=== PATIENT | female | born 1970 | race Caucasian/White ===

== ENCOUNTER 2016-07-04 18:57 | Emergency (ER) | payer MEDICAID, OTHER ==
[~2016-07-04] VITALS: Ht 162.6 cm; Wt 92.5 kg
[~2016-07-04 18:57] MED LIST: ACET325T33 PO; FAMO-18 PO; HYDR-3498 PO; HYDR-906 PO; NITR-58 PO
[2016-07-04 19:06] VITALS: Ht 162.6 cm; Wt 92.5 kg
[2016-07-04] MEDS ORDERED: SOD CHLORIDE 0.9% 1,000 ML IV STA (21:18)
[2016-07-04] MEDS ORDERED: FAMOTIDINE 20 MG INJ IV STA (21:18)
[2016-07-04] MEDS ORDERED: ONDANSETRON 4 MG INJ IV STA (21:18)
[2016-07-04 22:24] LABS: ADD SCAN DIFF NO
[2016-07-04 22:25] LABS: BASOPHIL # 0.1 10^3/ul (0.0-0.1); BASOPHILS % 0.6 % (0.0-2.0); EOSINOPHILS # 0.2 10^3/ul (0.0-0.5); EOSINOPHILS % 2.4 % (0.0-7.0); HEMATOCRIT 37.8 % (37.0-47.0); HEMOGLOBIN 11.8 g/dl (12.0-16.0); LYMPHOCYTES # 2.3 10^3/ul (0.8-2.9); LYMPHOCYTES % 25.4 % (15.0-51.0); MEAN CORPUSCULAR HEMOGLOBIN 28.4 pg (29.0-33.0); MEAN CORPUSCULAR HGB CONC 31.2 g/dl (32.0-37.0); MEAN CORPUSCULAR VOLUME 90.9 fl (82.0-101.0); MEAN PLATELET VOLUME 10.2 fl (7.4-10.4); MONOCYTE # 0.7 10^3/ul (0.3-0.9); MONOCYTES % 7.8 % (0.0-11.0); NEUTROPHIL # 5.6 10^3/ul (1.6-7.5); NEUTROPHILS % 63.3 % (39.0-77.0); PLATELET COUNT 342 10^3/UL (140-415); RED BLOOD COUNT 4.16 10^6/ul (4.20-5.40); RED CELL DISTRIBUTION WIDTH 14.1 % (11.5-14.5); WHITE BLOOD COUNT 8.9 10^3/ul (4.8-10.8)
[2016-07-04 22:47] LABS: ALBUMIN 3.9 g/dl (3.3-4.9); ALBUMIN/GLOBULIN RATIO 1.18; BILIRUBIN,INDIRECT 0.5 mg/dl (0-1.1); BILIRUBIN,TOTAL 0.5 mg/dl (0.2-1.3); CALCIUM 8.8 mg/dl (8.4-10.2); CREATININE 0.61 mg/dl (0.44-1.00); POTASSIUM 4.4 mmol/L (3.5-5.1); TOTAL PROTEIN 7.2 g/dl (6.1-8.1)
--- NOTE | 2016-07-04 22:55 | RADRPT ---
PROCEDURE: US Abdomen. CLINICAL INDICATION: abdominal pain TECHNIQUE: Multiple real-time images were acquired of the patient's right upper quadrant abdomen a nd retroperitoneum utilizing a high resolution transducer. COMPARISON: 11/28/2015 FINDINGS: The liver demonstrates increased echogenicity. The liver is slightly enlarged in size and no focal solid lesions are seen. The liver measures 20.1 cm in length. The portal vein is patent with normal direction of flow. No intrahepatic biliary dilatation is seen. The patient is status post cholecystectomy. The common bile duct measures 6 mm in maximal dimension. The visualized portions of the pancreas are unremarkable. The tail of the pancreas is not seen. No free fluid is identified. The right kidney is normal in size, and demonstrate normal echogenicity and cortical thickness. The right kidney measures 12.6 cm in long dimension. There is no evidence of hydronephrosis. There are no kidney stones. RPTAT: AA IMPRESSION: Mild fatty infiltration of the liver with mild hepatomegaly. Status post cholecystectomy with a normal sized CBD. .Lazaro Cifuentes MD, MD Date Time Electronically viewed and signed by .Lazaro Cifuentes MD, on 07/04/2016 22:55 .S/
--- NOTE | 2016-07-04 22:58 | RADRPT ---
PROCEDURE: US Pelvis. CLINICAL INDICATION: pelvic pain TECHNIQUE: Multiple sonographic images of the pelvis were obtained utilizing a transabdominal and endovaginal technique. The images were reviewed on a PACS workstation. COMPARISON: 09/28/2015 FINDINGS: The uterus is normal in size with a normal appearance of the myometrium. The uterus measures 8.9 x 4.7 x 5.5 cm. The endometrial stripe is homogeneous in appearance and has the thickness of 7 mm. The re are Nabothian cysts in the cervix. The right ovary was not visualized. There is a small 1.2 cm cyst in the left ovary. There is normal Doppler flow in the left ovary. The left ovary measures 3.4 x 2.1 x 2.3 cm. No free fluid is present within the pelvis. RPTAT: AA IMPRESSION: Unremarkable pelvic ultrasound. Right ovary not visualized. .Lazaro Cifuentes MD, Date Time Electronically viewed and signed by .Lazaro Cifuentes MD, MD on 07/04/2016 22:57 .S/
[2016-07-04 23:42] LABS: URINE BLOOD (Dip) POC Negative (NEGATIVE)
[2016-07-05] MEDS ORDERED: OMEP20CA16 PO (00:10)
--- NOTE | 2016-07-05 00:22 | ERD ---
ER Documentation Chief Complaint Date/Time DATE: 07/05/16 TIME: 00:14 Chief Complaint MID TO RUQ AP W/ VOMITING TODAY. STATES GALLBLADDER IS OUT. HPI This is a 45-year-old female presents emergency department for epigastric to right upper quadrant abdominal pain with vomiting starting today. Patient states she developed epigastric abdominal pain that radiates to right upper quadrant starting today. Patient had one episode of postprandial vomiting today. Nonbilious nonbloody emesis. Patient states she had cholecystectomy November 2015 due to gallstones. Patient describes pain as burning and cramping. No diarrhea Patient or constipation. No fevers or chills. Patient also has intermittent pelvic pain and was told she has "pelvic tumors." patient requesting pelvic ultrasound to determine if she has pelvic tumors. Patient states she was recently in [place] and was placed on amoxicillin for infection. Patient denies dysuria or hematuria. Last menstrual period 06/16/2016. No vaginal bleeding or pelvic pain. ROS All systems reviewed and are negative except as per history of present illness. Medications Home Meds Active Scripts Omeprazole* (Omeprazole*) 20 Mg Capsule., 20 MG PO DAILY, #10 Prov:JAY MARTINEZ NP 07/05/16 Famotidine* (Pepcid*) 20 Mg Tablet, 20 MG PO BID, #30 TAB Prov:HOLLIE MONTEZ PA-C 11/28/15 Hydrocodone/Acetaminophen ([place] 5-325 Tablet) 1 Each Tablet, 1 TAB PO Q6H Y for PAIN, #7 TAB Prov:HOLLIE MONTEZ PA-C 11/28/15 Acetaminophen* (Tylenol*) 325 Mg Tablet, 2 TAB PO Q6 Y for PAIN AND OR ELEVATED TEMP, #20 TAB Prov:ERLINDA MYLES PA-C 09/28/15 Famotidine* (Pepcid*) 20 Mg Tablet, 20 MG PO BID for 4 Days, TAB Prov:ERLINDA MYLES PA-C 09/28/15 Hydrocodone Bit-Acetaminophen* ([place]*) 5-325 Mg Tab, 1 TAB PO Q6 Y for PAIN, # 7 TAB Prov:ERLINDA MYLES PA-C 09/28/15 Nitrofurantoin Monohyd Macrocr* (Macrobid*) 100 Mg Capsr, 100 MG PO BID for 14 Days, CAP Prov:ERLINDA MYLES PA-C 09/28/15 Allergies Allergies: Coded Allergies: No Known Allergy (Unverified , 09/28/15) PMhx/Soc History of Surgery: No Anesthesia Reaction: No Hx Neurological Disorder: No Hx Respiratory Disorders: No Hx Cardiac Disorders: No Hx Psychiatric Problems: No Hx Alcohol Use: No Hx Substance Use: No Hx Tobacco Use: No Smoking Status: Never smoker Physical Exam Vitals Vital Signs Date Time Temp Pulse Resp B/P Pulse Ox O2 Delivery O2 Flow Rate FiO2 07/05/16 00:55 98.0 65 20 108/57 96 Room Air 07/04/16 19:06 98.0 77 20 124/56 97 Physical Exam const: No acute distress, alert Head: Atraumatic Eyes: Normal Conjunctiva ENT: Normal External Ears, Nose and Mouth. Neck: Full range of motion..~ No meningismus. Resp: Clear to auscultation bilaterally Cardio: Regular rate and rhythm, no murmurs Abd: Soft, non tender, non distended. Normal bowel sounds Skin: No petechiae or rashes Back: No midline or flank tenderness Ext: No cyanosis, or edema Neur: Awake and alert Psych: Normal Mood and Affect Result Diagram: 07/04/16220407/04/162204 Results 24 hrs Laboratory Tests Test 07/04/16 22:05 07/04/16 23:44 White Blood Count 8.910^3/ul Red Blood Count 4.1610^6/ul Hemoglobin 11.8g/dl Hematocrit 37.8% Mean Corpuscular Volume 90.9fl Mean Corpuscular Hemoglobin 28.4pg Mean Corpuscular Hemoglobin Concent 31.2g/dl Red Cell Distribution Width 14.1% Platelet Count 55903^3/UL Mean Platelet Volume 10.2fl Neutrophils % 63.3% Lymphocytes % 25.4% Monocytes % 7.8% Eosinophils % 2.4% Basophils % 0.6% Nucleated Red Blood Cells % 0.0/100WBC Neutrophils # 5.610^3/ul Lymphocytes # 2.310^3/ul Monocytes # 0.710^3/ul Eosinophils # 0.210^3/ul Basophils # 0.110^3/ul Nucleated Red Blood Cells # 0.010^3/ul Sodium Level 136mmol/L Potassium Level 4.4mmol/L Chloride Level 105mmol/L Carbon Dioxide Level 27mmol/L Anion Gap 8 Blood Urea Nitrogen 14mg/dl Creatinine 0.61mg/dl Glucose Level 95mg/dl Calcium Level 8.8mg/dl Total Bilirubin 0.5mg/dl Direct Bilirubin 0.00mg/dl Indirect Bilirubin 0.5mg/dl Aspartate Amino Transf (AST/SGOT) 26IU/L Alanine Aminotransferase (ALT/SGPT) 50IU/L Alkaline Phosphatase 104IU/L Total Protein 7.2g/dl Albumin 3.9g/dl Globulin 3.30g/dl Albumin/Globulin Ratio 1.18 Lipase 49U/L Bedside Urine pH (LAB) 6.0 Bedside Urine Protein (LAB) Negative Bedside Urine Glucose (UA) Negative Bedside Urine Ketones (LAB) Negative Bedside Urine Blood Negative Bedside Urine Nitrite (LAB) Negative Bedside Urine Leukocyte Esterase (L Negative Current Medications Medications (Trade) Dose Ordered Sig/Darin Route PRN Reason Start Time Stop Time Status Last Admin Dose Admin Sodium Chloride (NS) 1,000 ml @ 1,000 mls/hr Q1H STAT IV 07/04/16 21:18 07/04/16 22:17 DC 07/04/16 22:13 Ondansetron HCl (Zofran Inj) 4 mg ONCE STAT IV 07/04/16 21:18 07/04/16 21:21 DC 07/04/16 22:13 Famotidine (Pepcid Iv) 20 mg ONCE STAT IV 07/04/16 21:18 07/04/16 21:21 DC 07/04/16 22:13 Procedures/MDM ED COURSE: The patient was stable throughout ED course. I kept the patient and/or family informed of laboratory and diagnostic imaging results throughout the ED course. Laboratory CBC no significant anemia or infection CMP no significant electrolyte imbalance Lipase 49 Urine dip negative Urine negative Imaging Gallbladder ultrasound Patient: EMELIA KRAMER : 1970 Age: 45 Sex: F [id number]: 07/04/162117 Ordering MD: JAY MARTINEZ NP Location: [facility] Room/Bed: PROCEDURE: US Abdomen. CLINICAL INDICATION: abdominal pain TECHNIQUE: Multiple real-time images were acquired of the patient's right upper quadrant abdomen and retroperitoneum utilizing a high resolution transducer. COMPARISON: 11/28/2015 FINDINGS: The liver demonstrates increased echogenicity. The liver is slightly enlarged in size and no focal solid lesions are seen. The liver measures 20.1 cm in length. The portal vein is patent with normal direction of flow. No intrahepatic biliary dilatation is seen. The patient is status post cholecystectomy. The common bile duct measures 6 mm in maximal dimension. The visualized portions of the pancreas are unremarkable. The tail of the pancreas is not seen. No free fluid is identified. The right kidney is normal in size, and demonstrate normal echogenicity and cortical thickness. The right kidney measures 12.6 cm in long dimension. There is no evidence of hydronephrosis. There are no kidney stones. RPTAT: AA IMPRESSION: Mild fatty infiltration of the liver with mild hepatomegaly. Status post cholecystectomy with a normal sized CBD. Pelvic ultrasound Patient: EMELIA KRAMER : 1970 Age: 45 Sex: F MR #: [id number] DOS: 07/04/162117 Ordering MD: JAY MARTINEZ NP Location: [facility] Room/Bed: PROCEDURE: US Pelvis. CLINICAL INDICATION: pelvic pain TECHNIQUE: Multiple sonographic images of the pelvis were obtained utilizing a transabdominal and endovaginal technique. The images were reviewed on a PACS workstation. COMPARISON: 09/28/2015 FINDINGS: The uterus is normal in size with a normal appearance of the myometrium. The uterus measures 8.9 x 4.7 x 5.5 cm. The endometrial stripe is homogeneous in appearance and has the thickness of 7 mm. There are Nabothian cysts in the cervix. The right ovary was not visualized. There is a small 1.2 cm cyst in the left ovary. There is normal Doppler flow in the left ovary. The left ovary measures 3.4 x 2.1 x 2.3 cm. No free fluid is present within the pelvis. RPTAT: AA IMPRESSION: Unremarkable pelvic ultrasound. Right ovary not visualized. EKG: as interpreted by Dr. Larson Rate/Rhythm: Normal Sinus Rhythm with HR 63bpm QRS, ST, T-waves: No changes consistent w/ acute ischemia Impression: No evidence of ischemia or arrhythmia MDM: This is a 45-year-old female presenting to the emergency department for epigastric and right upper quadrant abdominal pain with postprandial vomiting today. Nonbloody nonbilious emesis. No fevers or chills. Patient is afebrile upon arrival to ED. labs obtained per chief of staff doctor. IV access obtained and patient given 1 L fluid bolus of normal saline. Labs are unremarkable. No significant anemia or infection. No significant electrolyte imbalance. Patient given Pepcid and Zofran while in the ED. Upon reassessment, patient states abdominal pain has improved. Ultrasound gallbladder reviewed by radiologist as mild fatty infiltration of the liver with mild hepatomegaly. Status post cholecystectomy with a normal sized CBD. Pelvic ultrasound reviewed by radiologist as unremarkable. Patient given copies of her test results. EKG shows NSR with HR 63bpm as interpreted by Dr. Larson. Low suspicion for acute IN, ACS, choledocholithiasis, pancreatitis, diverticulitis, UTI or pyelonephritis. Differential diagnosis includes but not limited to GERD, gastritis, gastroparesis, peptic ulcer disease and BATISTA. Patient is appropriate for outpatient management and we given prescription for omeprazole. Instructed patient to follow-up with primary care provider in the next 2-3 days for reassessment. Return to ED for any high fever, chest pain, difficulty breathing, shortness breath, wheezing, vomiting, diarrhea, abdominal pain or any new or worsening symptoms. Patient verbalizes understanding. All questions answered at discharge. Departure Diagnosis: Primary Impression: Abdominal pain Abdominal location: epigastric Qualified Code: R10.13 - Epigastric pain Condition: Stable Patient Instructions: Non-Alcoholic Fatty Liver Disease (NAFLD), Gerd (Adult) Referrals: [facility] Usted se oconnor hecho un examen mdico de control que le indica que no est en romel condicin que requiera tratamiento urgente en el Departamento de Emergencia. Un estudio ms profundo y el tratamiento de garcia condicin pueden esperar sin ningn riesgo hasta que usted sea atendida/o en el consultorio de garcia mdico o romel cl fide. Es responsabilidad suya arreglar romel ketan para el seguimiento del danette. MANEJO DE CONDICIONES NO URGENTES EN EL FUTURO 1) Si usted tiene un mdico de atencin primaria: Usted debera llamar a garcia mdico de atencin primaria antes de venir al departamento de emergencia. Despus de las horas de consultorio, garcia doctor o garcia asociado/a est disponible por telfono. El mdico o enfermero de galilea en el servicio telefnico puede asesorarle por estella medio para atender el problema, o danette contrario se puede programar romel ketan. 2) Si usted no tiene un mdico de atencin primaria: Llame al mdico o clnica de referencia que aparece [place] las horas de consultorio para hacer romel ketan para que le vean. CLINICAS: [facility] [phone] [place] [facility] [phone] [facility] [phone] [facility] [phone] [facility] [phone] [address] [facility]. [phone] [address] [facility]. [facility] () Usted se oconnor hecho un examen mdico de control que le indica que no est en romel condicin que requiera tratamiento urgente en el Departamento de Emergencia. Un estudio ms profundo y el tratamiento de garcia condicin pueden esperar sin ningn riesgo hasta que usted sea atendida/o en el consultorio de garcia mdico o romel cl fide. Es responsabilidad suya arreglar romel ketan para el seguimiento del danette. MANEJO DE CONDICIONES NO URGENTES EN EL FUTURO 1) Si usted tiene un mdico de atencin primaria: Usted debera llamar a garcia mdico de atencin primaria antes de venir al departamento de emergencia. Despus de las horas de consultorio, garcia doctor o garcia asociado/a est disponible por telfono. El mdico o enfermero de galilea en el servicio telefnico puede asesorarle por estella medio para atender el problema, o danette contrario se puede programar romel ketan. 2) Si usted no tiene un mdico de atencin primaria: Llame al mdico o condado institucions de referencia que aparece abajo [place] las horas de consultorio para hacer romel ketan para que le vean. SI USTED NO PUEDE PAGAR PARA CLARI UN MEDICO puede ir a: [facility] [address] [place] [address] [facility] [address] [place] [address] [facility] [address] [place] [address] [facility] [address] [place], [place] [id number] Additional Instructions: Llame al doctor MAANA y yaneli romel KETAN PARA DENTRO DE 2-3 GUTIERREZ.Dgale a la secretaria que nosotros le instruimos hacer esta ketan.Avise o llame si garcia condicin se empeora antes de la ketan. Regresa aqui si peor o no mejor. Return to ED for any high fever, chest pain, difficulty breathing, shortness breath, wheezing, vomiting, diarrhea, abdominal pain or any new or worsening symptoms. JAY MARTINEZ NP July 05, 2016 00:22
[2016-07-05 00:55] VITALS: BP 108/57; PULSE 65; RESP 20; TEMP 98
== END 2016-07-05 00:56 | disposition home or self-care (01) ==
LOC: FTE 18:57
DX: R10.13 Epigastric pain (principal); R10.2 Pelvic and perineal pain
CPT/HCPCS: 76705; 76830; 76856; 80053; 81003; 83690; 85025; J2405; J7030; Z7610; 36415; 93005; 96374; 96375

== ENCOUNTER 2016-08-19 16:01 | Emergency (ER) | payer OTHER ==
[~2016-08-19] VITALS: Ht 162.6 cm; Wt 93.0 kg
[~2016-08-19 16:01] MED LIST changes: +OMEP20CA16 PO
[2016-08-19 16:08] VITALS: Ht 162.6 cm; Wt 93.0 kg
[2016-08-19 17:08] LABS: ADD SCAN DIFF NO
[2016-08-19 17:10] LABS: BASOPHIL # 0.1 10^3/ul (0.0-0.1); BASOPHILS % 0.4 % (0.0-2.0); EOSINOPHILS # 0.2 10^3/ul (0.0-0.5); EOSINOPHILS % 1.5 % (0.0-7.0); HEMATOCRIT 36.3 % (37.0-47.0); HEMOGLOBIN 11.2 g/dl (12.0-16.0); LYMPHOCYTES # 2.6 10^3/ul (0.8-2.9); LYMPHOCYTES % 21.7 % (15.0-51.0); MEAN CORPUSCULAR HEMOGLOBIN 27.3 pg (29.0-33.0); MEAN CORPUSCULAR HGB CONC 30.9 g/dl (32.0-37.0); MEAN CORPUSCULAR VOLUME 88.5 fl (82.0-101.0); MEAN PLATELET VOLUME 10.1 fl (7.4-10.4); MONOCYTES % 8.1 % (0.0-11.0); NEUTROPHIL # 8.1 10^3/ul (1.6-7.5); NEUTROPHILS % 67.8 % (39.0-77.0); PLATELET COUNT 363 10^3/UL (140-415); RED CELL DISTRIBUTION WIDTH 13.8 % (11.5-14.5); WHITE BLOOD COUNT 11.9 10^3/ul (4.8-10.8)
[2016-08-19 17:22] LABS: ADD UMIC NO; UR ASCORBIC ACID NEGATIVE (NEGATIVE); UR BILIRUBIN (Dip) NEGATIVE (NEGATIVE); UR BLOOD (Dip) NEGATIVE (NEGATIVE); UR CLARITY CLEAR (CLEAR); UR COLOR YELLOW (YELLOW); UR GLUCOSE (Dip) NEGATIVE (NEGATIVE); UR KETONES (Dip) NEGATIVE (NEGATIVE); UR LEUKOCYTE ESTERASE (Dip) NEGATIVE Leu/ul (NEGATIVE); UR NITRITE (Dip) NEGATIVE (NEGATIVE); UR SPECIFIC GRAVITY (Dip) 1.019 (1.003-1.030); UR TOTAL PROTEIN (Dip) NEGATIVE (NEGATIVE); UR UROBILINOGEN (Dip) NEGATIVE (NEGATIVE)
--- NOTE | 2016-08-19 17:32 | RADRPT ---
PROCEDURE: Ultrasound of the bilateral lower extremity venous system. CLINICAL INDICATION: Bilateral leg pain and swelling, deep venous thrombosis TECHNIQUE: Smith scale with and without compression, color doppler, spectral doppler of the venous system of the bilateral lower extremities was performed. Venous augmentation maneuvers were utilized . COMPARISON: No prior studies are available for comparison. FINDINGS: RIGHT: Common femoral vein: Patent. Femoral vein: Patent. Popliteal vein: Patent. Calf veins: Patent. No soft tissue abnormalities are identified. LEFT: Common femoral vein: Patent. Femoral vein: Patent. Popliteal vein: Patent. Calf veins: Patent. No soft tissue abnormalities are identified. IMPRESSION: No evidence of a deep vein thrombosis within the bilateral lower extremities. RPTAT: AADD .Collins Gaxiola MD, MD Date Time Electronically viewed and signed by .Collins Gaxiola MD, on 08/19/2016 17:32 .B/
[2016-08-19 17:36] LABS: ALBUMIN 4.7 g/dl (3.3-4.9); ALBUMIN/GLOBULIN RATIO 1.51; BILIRUBIN,INDIRECT 0.3 mg/dl (0-1.1); BILIRUBIN,TOTAL 0.3 mg/dl (0.2-1.3); CALCIUM 9.2 mg/dl (8.4-10.2); CREATININE 0.61 mg/dl (0.44-1.00); POTASSIUM 4.2 mmol/L (3.5-5.1); TOTAL PROTEIN 7.8 g/dl (6.1-8.1)
[2016-08-19] MEDS ORDERED: BEN25 PO (17:49)
[2016-08-19] MEDS ORDERED: CLIN-73 PO (17:49)
--- NOTE | 2016-08-19 19:15 | ERD ---
ER Documentation Chief Complaint Date/Time DATE: 08/19/16 TIME: 19:05 Chief Complaint Complains of allergic reaction HPI This is a 45-year-old female presents to the ER stating she had an allergic reaction. Yesterday she took amoxicillin for a dental infection, and she noticed that today her bilateral hands felt tingly and she has bilateral leg swelling and tingling. Patient denies any rashes, facial swelling, itchiness of the body, redness of the body. Patient denies any difficulty in breathing, and denies any sensation of her throat closing. Patient has been under a lot of stress lately as four family members have . Patient has taken amoxicillin in the past without any problems. Patient denies any chest pain or shortness of breath. Patient denies any recent travel. Patient denies any headache, trauma, weakness of her upper or lower extremity. She denies any fevers or chills. ROS 12 point review of systems was done, all negative except per HPI. Medications Home Meds Active Scripts Clindamycin Hcl* (Clindamycin Hcl*) 300 Mg Capsule, 300 MG PO TID for 10 Days, CAP Prov:DARRELL MCCALL 08/19/16 Diphenhydramine Hcl* (Benadryl*) 25 Mg Cap, 25 MG PO Q6, #30 CAP Prov:DARRELL MCCALL 08/19/16 Omeprazole* (Omeprazole*) 20 Mg Capsule.dr, 20 MG PO DAILY, #10 Prov:JAY MARTINEZ NP 07/05/16 Famotidine* (Pepcid*) 20 Mg Tablet, 20 MG PO BID, #30 TAB Prov:HOLLIE MONTEZ PA-C 11/28/15 Hydrocodone/Acetaminophen ([place] 5-325 Tablet) 1 Each Tablet, 1 TAB PO Q6H Y for PAIN, #7 TAB Prov:HOLLIE MONTEZ PA-C 11/28/15 Acetaminophen* (Tylenol*) 325 Mg Tablet, 2 TAB PO Q6 Y for PAIN AND OR ELEVATED TEMP, #20 TAB Prov:ERLINDA MYLES PA-C 09/28/15 Famotidine* (Pepcid*) 20 Mg Tablet, 20 MG PO BID for 4 Days, TAB Prov:ERLINDA MYLES PA-C 09/28/15 Hydrocodone Bit-Acetaminophen* ([place]*) 5-325 Mg Tab, 1 TAB PO Q6 Y for PAIN, # 7 TAB Prov:ERLINDA MYLES PA-C 09/28/15 Nitrofurantoin Monohyd Macrocr* (Macrobid*) 100 Mg Capsr, 100 MG PO BID for 14 Days, CAP Prov:ERLINDA MYLES PA-C 09/28/15 Allergies Allergies: Coded Allergies: No Known Allergy (Unverified , 09/28/15) PMhx/Soc History of Surgery: Yes (cholecystectomy 11/2015) Anesthesia Reaction: No Hx Neurological Disorder: No Hx Respiratory Disorders: No Hx Cardiac Disorders: No Hx Psychiatric Problems: No Hx Miscellaneous Medical Probl: Yes (Fibroids and gallstone) Hx Alcohol Use: No Hx Substance Use: No Hx Tobacco Use: No Smoking Status: Never smoker Physical Exam Vitals Vital Signs Date Time Temp Pulse Resp B/P Pulse Ox O2 Delivery O2 Flow Rate FiO2 08/19/16 16:08 98.3 83 20 155/65 99 Physical Exam GENERAL: The patient is well developed and appropriate for usual state of health , in no apparent distress. HEENT: Atraumatic. Conjunctivae are pink. Pupils equal, round, and reactive to light. Extraocular muscles are grossly intact. Bilateral tympanic membranes are clear with no evidence of erythema, bulging or perforation. No sinus tenderness.No swelling of the lip, tongue, eyes. NECK: C-spine is soft and supple. There is no cervical lymphadenopathy. CHEST: Clear to auscultation bilaterally. There are no rales, wheezes or rhonchi. HEART: Regular rate and rhythm. No murmurs, clicks, rubs or gallops. EXTREMITIES: Equal pulses bilaterally. There is no peripheral clubbing, cyanosis or edema. No focal swelling or erythema. Full range of motion. Grossly neurovascularly intact. There is no pitting edema or swelling of the extremities. There is no erythema. Patient has full range of motion of her knee and ankles. NEURO: Alert and oriented. Cranial nerves II through XII are intact. Motor strength in all 4 extremities with 5/5 strength. Sensation grossly intact. Normal speech and gait. Negative Rhomberg. +2 DTRs. SKIN: There is no apparent rash or petechia. The skin is warm and dry. Result Diagram: 08/19/16 1650 08/19/16 1650 Results 24 hrs Laboratory Tests Test 08/19/16 16:50 White Blood Count 11.910^3/ul Red Blood Count 4.1010^6/ul Hemoglobin 11.2g/dl Hematocrit 36.3% Mean Corpuscular Volume 88.5fl Mean Corpuscular Hemoglobin 27.3pg Mean Corpuscular Hemoglobin Concent 30.9g/dl Red Cell Distribution Width 13.8% Platelet Count 09755^3/UL Mean Platelet Volume 10.1fl Neutrophils % 67.8% Lymphocytes % 21.7% Monocytes % 8.1% Eosinophils % 1.5% Basophils % 0.4% Nucleated Red Blood Cells % 0.0/100WBC Neutrophils # 8.110^3/ul Lymphocytes # 2.610^3/ul Monocytes # 1.010^3/ul Eosinophils # 0.210^3/ul Basophils # 0.110^3/ul Nucleated Red Blood Cells # 0.010^3/ul Urine Color YELLOW Urine Clarity CLEAR Urine pH 5.0 Urine Specific [place] 1.019 Urine Ketones NEGATIVEmg/dL Urine Nitrite NEGATIVEmg/dL Urine Bilirubin NEGATIVEmg/dL Urine Urobilinogen NEGATIVEmg/dL Urine Leukocyte Esterase NEGATIVELeu/ul Urine Hemoglobin NEGATIVEmg/dL Urine Glucose NEGATIVEmg/dL Urine Total Protein NEGATIVEmg/dl Sodium Level 136mmol/L Potassium Level 4.2mmol/L Chloride Level 103mmol/L Carbon Dioxide Level 25mmol/L Anion Gap 12 Blood Urea Nitrogen 10mg/dl Creatinine 0.61mg/dl Glucose Level 85mg/dl Calcium Level 9.2mg/dl Total Bilirubin 0.3mg/dl Direct Bilirubin 0.00mg/dl Indirect Bilirubin 0.3mg/dl Aspartate Amino Transf (AST/SGOT) 26IU/L Alanine Aminotransferase (ALT/SGPT) 36IU/L Alkaline Phosphatase 103IU/L Total Protein 7.8g/dl Albumin 4.7g/dl Globulin 3.10g/dl Albumin/Globulin Ratio 1.51 Procedures/MDM This is a 45-year-old female presents to the ER stating she had an allergic reaction. At this time her symptoms are not consistent with an allergic reaction as she does not have any rashes, itchiness, difficulty breathing, swelling of the face or throat. She is describing what seems to be leg paresthesias. I do not appreciate any swelling of her legs. Patient was neurologically intact with no focal neurological deficits I doubt intracranial pathology, such as tumor or bleed. Patient's blood work was checked there is no evidence of electrolyte abnormalities, patient does have mild anemia. likely not the cause of her symptoms. There is also a slight elevation in her WBC, however this is also not likely the cause of her symptoms. She has denied any chest pain shortness of breath to suggest congestive heart failure. There was also no evidence of clots in bilateral legs. At this time patient's antibiotic will be changed to clindamycin as it is very important for patient to continue with antibiotics, and patient is afraid of taking amoxicillin. She will also be given Benadryl if she were to develop a rash or any other allergic reaction symptoms. Patient is to follow-up with her primary care doctor within 1-2 days return to ER sooner if symptoms worsen. My medical decision making was shared with the patient she understands and agrees with plan. Departure Diagnosis: Primary Impression: Multiple complaints Condition: Stable Patient Instructions: Numbness Additional Instructions: Call your primary care doctor TOMORROW for an appointment during the next 1-2 days.See the doctor sooner or return here if your condition worsens before your appointment time. DARRELL MCCALL Aug 19, 2016 19:15
== END 2016-08-19 18:06 | disposition home or self-care (01) ==
LOC: FTE 16:01
DX: R20.2 Paresthesia of skin (principal); T36.0X5A Adverse effect of penicillins, initial encounter
CPT/HCPCS: 80053; 81003; 85025; 93970; 99283